=== PATIENT | male | born 1955 | race Caucasian/White ===

== ENCOUNTER 2020-06-22 06:32 | Day surgery (SDC) | payer OTHER ==
[2020-06-16 14:53] VITALS: BMI 25.0
[2020-06-22] MEDS ORDERED: TAMSULOSIN HCL 0.4 MG CAP ONE (06:46)
[2020-06-22] MEDS ORDERED: MIDAZOLAM HCL 2 MG/2 ML SINGLE DOSE VIAL ONE (07:23)
[2020-06-22] MEDS ORDERED: BUPIVACAINE HCL/PF 0.5% (5 MG/ML) 30 ML VIAL IJ ONE (07:24)
[2020-06-22] MEDS ORDERED: SUCCINYLCHOLINE CHLORIDE 200 MG/10 ML SYRINGE ONE (07:25)
[2020-06-22] MEDS ORDERED: PROPOFOL 20 ML ONE ×2 (07:25)
[2020-06-22] MEDS ORDERED: ROCURONIUM BROMIDE 50 MG/5 ML SYRINGE ONE (07:25)
[2020-06-22] MEDS ORDERED: DEXAMETHASONE SOD PHOSPHATE 4 MG/1 ML VIAL ONE (07:28)
[2020-06-22] MEDS ORDERED: ceFAZolin SODIUM 1 GM VIAL ONE (07:28)
[2020-06-22] MEDS ORDERED: ONDANSETRON 4 MG/2 ML VIAL ONE (07:28)
[2020-06-22] MEDS ORDERED: DEXAMETHASONE SOD PHOSPHATE/PF 10 MG/ML SDV ONE (07:54)
[2020-06-22] MEDS ORDERED: PHENYLEPHRINE HCL 10 MG/1 ML SINGLE DOSE VIAL ONE (08:42)
[2020-06-22] MEDS ORDERED: GLYCOPYRROLATE 0.2 MG/1 ML VIAL ONE (08:50)
[2020-06-22] MEDS ORDERED: NEOSTIGMINE METHYLSULFATE 0.5 MG/ML - 10 ML MDV ONE (08:50)
[2020-06-22] MEDS ORDERED: oxyCODONE HCL 5 MG TABLET ONE (11:20)
[2020-06-22 11:29] VITALS: TEMP 98
[2020-06-22 12:37] VITALS: BP 138/85; PULSE 71
[2020-06-22] MEDS ORDERED: ONDANSETRON 4 MG/2 ML VIAL IVPUSH PRN (12:46)
[2020-06-22] MEDS ORDERED: oxyCODONE HCL 5 MG TABLET PO PRN (12:46)
[2020-06-22] MEDS ORDERED: LACTATED RINGERS SOLUTION 1,000 ML IV SCH (13:00)
--- NOTE | 2020-06-23 12:06 | OP ---
DATE OF OPERATION: 06/22/2020 PREOPERATIVE DIAGNOSIS: Chronically incarcerated right inguinal hernia, possible left inguinal hernia. POSTOPERATIVE DIAGNOSIS: Chronically incarcerated right inguinal hernia, incarcerated right femoral hernia (On the right side the inguinal was indirect; the direct space was attenuated). On the left the patient had an indirect inguinal hernia. PROCEDURE: Laparoscopic repair of incarcerated right inguinal and incarcerated right femoral hernia with mesh; laparoscopic repair of left inguinal hernia with mesh. SURGEON: Davy Piedra MD WATER AND FIRE TECHNICIAN: Malik Wilson DO ANESTHESIA: General (TARAH Schreiber) ESTIMATED BLOOD LOSS: Minimal. SPECIMEN: None. DESCRIPTION OF PROCEDURE: This is a 65-year-old gentleman with a very longstanding history of having a right inguinal hernia. Over this time course it became chronically incarcerated and now he has an inguinoscrotal hernia. It is so large and patient has discomfort. He wished to have this repaired at this time. Patient identified and appropriately positioned on the operating room table. After placement of general anesthesia, the abdomen was prepped and draped in the usual sterile fashion with ChloraPrep. An infraumbilical incision was made, deepened through the subcutaneous tissue. A vertical incision overlying the rectus muscle on the right was made and deepened through the subcutaneous tissue. The anterior sheath of the rectus muscle divided, the muscle split. Under direct vision dissector balloon followed by a structural balloon placed. Also under direct vision a suprapubic 11-mm port placed. The following structures on the right side identified: Pubic tubercle, Meño's ligament, inferior epigastrics, spermatic cord and lateral abdominal wall. During this dissection the patient was noted to have a chronically incarcerated indirect inguinal hernia. The direct space was markedly attenuated. He also was noted to have an incarcerated femoral hernia. The femoral hernia contained fat. This was reduced back in the preperitoneal space. The indirect sac reduced back in the preperitoneal space with a large cord lipoma. A 5.5 x 6 piece of Versatex mesh was keyholed, placed through the suprapubic port site. The mesh was wrapped around the cord structures laterally to reconstruct the internal ring. Laterally the mesh was anchored to the anterior abdominal wall, lateral abdominal wall. Medially the mesh was anchored to the anterior abdominal wall, pubic tubercle and Meño's ligament. Upon completion of the right side, similar structures on the left side identified. Left side demonstrated some attenuation of the direct inguinal floor, but he had a large indirect inguinal hernia sac as well with a moderate size cord lipoma, both reduced in the preperitoneal space with blunt dissection. Another 5.5 x 6 piece of Versatex was keyholed, placed through the suprapubic port site. The mesh was wrapped around the cord structures laterally to reconstruct the internal ring. Laterally the mesh was anchored to the anterior abdominal and lateral abdominal wall. Medially the mesh well overlapped in the midline, anchored to the anterior abdominal wall, pubic tubercle and Meño's ligament. All anterior abdominal wall and lateral abdominal wall anchors placed under direct counter palpation. The anchoring system was AbsorbaTack and the mesh used was Versatex. The fascia was reapproximated at both port sites. The skin closed with 4-0 subcuticular Biosyn followed by Dermabond. At the conclusion of this case, sponge and needle count was correct. ATTESTATION: Brief op note handwritten on the preprinted form. [facility] queried prior to giving any narcotics. Brandon NIEVES [id number] cc: Loy Willard MD
== END 2020-06-22 12:39 | disposition home or self-care (01) ==
LOC: FASU 06:32
PROVIDERS: ATTEND Surgery
PROC: 0YU84JZ Supplement Left Femoral Region with Synthetic Substitute, Percutaneous Endoscopic Approach (ICD-10-PCS; 2020-06-22)
PROC: 0YUA4JZ Supplement Bilateral Inguinal Region with Synthetic Substitute, Percutaneous Endoscopic Approach (ICD-10-PCS; principal; 2020-06-22 08:29)
DX: K40.31 Unilateral inguinal hernia, with obstruction, without gangrene, recurrent (principal); K40.90 Unilateral inguinal hernia, without obstruction or gangrene, not specified as recurrent; K41.30 Unilateral femoral hernia, with obstruction, without gangrene, not specified as recurrent
CPT/HCPCS: 94760